=== PATIENT | male | born 1970 | race Hispanic/Latino ===

== ENCOUNTER 2021-02-08 12:28 | Inpatient (IN) | payer BC ==
[~2021-02-08] VITALS: Ht 170.2 cm; Wt 84.8 kg
[2021-02-08] MEDS ORDERED: SODIUM CHLORIDE 0.9% 1000ML 1,000 ML IV STA (13:40)
[2021-02-08 13:57] LABS: BASOPHILS % 0.1 % (0.0-1.0); EOSINOPHILS % 0.5 % (0.0-6.0); HEMATOCRIT 48.3 % (38.2-49.6); HEMOGLOBIN 16.1 g/dL (14.0-18.0); LYMPHOCYTES # (AUTO) 1.1 (1.0-3.2); LYMPHOCYTES % 13.7 % (18.0-39.1); MEAN CORPUSCULAR HEMOGLOBIN 29.7 pg (28-32); MEAN CORPUSCULAR HGB CONC 33.3 g/dL (31-35); MEAN CORPUSCULAR VOLUME 89.1 fL (81-99); MONOCYTES # (AUTO) 0.5 (0.2-0.8); MONOCYTES % 6.3 % (4.4-11.3); NEUTROPHILS # (AUTO) 6.2 (2.1-6.9); NEUTROPHILS % 77.3 % (38.7-80.0); PLATELET COUNT 330 x10e3/uL (140-360); RED BLOOD COUNT 5.42 x10e6/uL (4.3-5.7); RED CELL DISTRIBUTION WIDTH 13.2 % (11.7-14.4)
[2021-02-08 14:11] LABS: INR 1.13; PROTHROMBIN TIME 14.7 seconds (11.9-14.5)
[2021-02-08 14:12] LABS: PARTIAL THROMBOPLASTIN TIME 42.5 seconds (23.8-35.5)
[2021-02-08 14:22] LABS: ALANINE AMINOTRANSFERASE 78 IU/L (0-55); ALBUMIN 3.1 g/dL (3.5-5.0); ALBUMIN/GLOBULIN RATIO 0.7 (0.8-2.0); ALKALINE PHOSPHATASE 65 IU/L (40-150); ANION GAP 16.4 mmol/L (8-16); BLOOD UREA NITROGEN 13 mg/dL (7-26); BUN/CREATININE RATIO 13 (6-25); CALCIUM 8.9 mg/dL (8.4-10.2); CARBON DIOXIDE 26 mmol/L (22-29); CHLORIDE 98 mmol/L (98-107); CREATINE KINASE 51 IU/L (30-200); EST GLOMERULAR FILTRATION RATE 79 ML/MIN (60-); GLUCOSE 99 mg/dL (74-118); MAGNESIUM 2.1 MG/DL (1.3-2.1); POTASSIUM 4.4 mmol/L (3.5-5.1); SODIUM 136 mmol/L (136-145)
[2021-02-08] MEDS: CEFTRIAXONE 1 GM in SODIUM CHLORIDE 0.9% 50ML 50 ML IV SCH (14:29)
[2021-02-08] MEDS: ASCORBIC ACID 500 MG TAB PO SCH (14:29)
[2021-02-08] MEDS ORDERED: REMDESIVIR 200MG 200 MG in SODIUM CHLORIDE 0.9% 100 ML 100 ML IV ONE (14:30)
[2021-02-08] MEDS ORDERED: ACETAMINOPHEN 325 MG TAB PO PRN (15:00)
[2021-02-08] MEDS ORDERED: GUAIFENESIN/DEXTROMETHORPHAN LIQD 5 ML UDC NG PRN (15:00)
[2021-02-08] MEDS ORDERED: KETOROLAC TROMETHAMINE 30 MG/ML VIAL IV PRN (15:00)
[2021-02-08] MEDS ORDERED: METHYLPREDNISOLONE SOD SUCC 125 MG/2ML VIAL IV NR (15:30)
[2021-02-08] MEDS: ENOXAPARIN SOD INJ 40 MG/0.4 ML SYR SC SCH (17:02)
[2021-02-08] MEDS ORDERED: GUAIFENESIN/DEXTROMETHORPHAN 237 ML SYRUP PO PRN (17:30)
[2021-02-08 19:28] VITALS: BP 137/90
[2021-02-08 21:51] VITALS: BP 137/90
[2021-02-09 01:45] VITALS: BP 143/97
[2021-02-09 06:13] LABS: BASOPHILS % 0.3 % (0.0-1.0); EOSINOPHILS # (AUTO) 0.1 (0.0-0.4); EOSINOPHILS % 1.1 % (0.0-6.0); HEMATOCRIT 47.5 % (38.2-49.6); HEMOGLOBIN 16.2 g/dL (14.0-18.0); LYMPHOCYTES % 14.7 % (18.0-39.1); MEAN CORPUSCULAR HEMOGLOBIN 29.3 pg (28-32); MEAN CORPUSCULAR HGB CONC 34.1 g/dL (31-35); MEAN CORPUSCULAR VOLUME 86.1 fL (81-99); MONOCYTES # (AUTO) 0.4 (0.2-0.8); MONOCYTES % 5.3 % (4.4-11.3); NEUTROPHILS % 75.4 % (38.7-80.0); PLATELET COUNT 323 x10e3/uL (140-360); RED BLOOD COUNT 5.52 x10e6/uL (4.3-5.7); RED CELL DISTRIBUTION WIDTH 12.9 % (11.7-14.4)
[2021-02-09 06:21] VITALS: BP 120/88
[2021-02-09 06:31] LABS: ALBUMIN 2.7 g/dL (3.5-5.0); ALBUMIN/GLOBULIN RATIO 0.6 (0.8-2.0); ANION GAP 16.1 mmol/L (8-16); CALCIUM 8.8 mg/dL (8.4-10.2); CREATININE, SERUM 0.75 mg/dL (0.72-1.25); POTASSIUM 4.1 mmol/L (3.5-5.1)
[2021-02-09 07:11] VITALS: BP 120/88
[2021-02-09] MEDS: MULTIVITAMINS/MINERALS TAB PO SCH (08:06)
[2021-02-09] MEDS: ZINC SULFATE 50 MG CAP PO SCH (08:06)
[2021-02-09] MEDS: CEFTRIAXONE 1 GM in SODIUM CHLORIDE 0.9% 50ML 50 ML IV SCH (08:06)
[2021-02-09] MEDS: ASCORBIC ACID 500 MG TAB PO SCH ×2 (08:06→16:30)
[2021-02-09] MEDS: DEXAMETHASONE SOD PHOS 10 MG/1 ML VIAL IV SCH (08:06)
[2021-02-09] MEDS ORDERED: REMDESIVIR 100MG 100 MG in SODIUM CHLORIDE 0.9% 100 ML IV SCH (14:00)
[2021-02-09] MEDS: ENOXAPARIN SOD INJ 40 MG/0.4 ML SYR SC SCH (16:30)
[2021-02-09] MEDS ORDERED: PREDNISONE 20 MG TAB PO ONE (18:00)
[2021-02-09 19:25] VITALS: BP 135/99
[2021-02-09 21:00] VITALS: BP 135/99
[2021-02-09] MEDS ORDERED: TRAZODONE HCL 50 MG TAB PO SCH (21:00)
[2021-02-09] MEDS ORDERED: ZOLPIDEM TARTRATE 5 MG TAB PO PRN (21:00)
[2021-02-10 01:16] VITALS: BP 106/81
[2021-02-10 06:21] VITALS: BP 111/78
[2021-02-10 08:34] VITALS: BP 109/89
[2021-02-10] MEDS: CEFTRIAXONE 1 GM in SODIUM CHLORIDE 0.9% 50ML 50 ML IV SCH (08:41)
[2021-02-10] MEDS: DEXAMETHASONE SOD PHOS 10 MG/1 ML VIAL IV SCH (08:41)
[2021-02-10] MEDS: ASCORBIC ACID 500 MG TAB PO SCH (08:41)
[2021-02-10] MEDS: MULTIVITAMINS/MINERALS TAB PO SCH (08:41)
[2021-02-10] MEDS: ZINC SULFATE 50 MG CAP PO SCH (08:41)
[2021-02-10 12:00] VITALS: BP 119/97
== END 2021-02-10 14:36 | disposition home or self-care (01) | DRG 177 ==
LOC: ER 13:12 → ERHOLD 13:46 → IMCU 17:30
PROVIDERS: ADMIT Internal Medicine; ATTEND Internal Medicine
PROC: 8E0ZXY6 Isolation (ICD-10-PCS; principal; 2021-02-08)
PROC: XW033E5 Introduction of Remdesivir Anti-infective into Peripheral Vein, Percutaneous Approach, New Technology Group 5 (ICD-10-PCS; 2021-02-09)
DX: U07.1 COVID-19 (principal); J12.82 Pneumonia due to coronavirus disease 2019; J96.01 Acute respiratory failure with hypoxia; B17.8 Other specified acute viral hepatitis; E88.09 Other disorders of plasma-protein metabolism, not elsewhere classified
CPT/HCPCS: 36415; 71045; 80053; 82550; 82553; 83735; 83880; 84484; 85025; 85610; 85730; 87040; 93005; 99284; J0456; J0696; J1100; J1650; J1885; J7030; J7050; J7512; U0002